=== PATIENT | female | born 1930 | race Caucasian/White ===

== ENCOUNTER 2016-09-27 10:37 | Emergency (ER) | payer MEDICARE ==
[2016-09-27 12:21] VITALS: BP 151/67
--- NOTE | 2016-09-27 12:27 | UC ---
Dizzy HPI HPI Summary: 86 yo female slept in later than normal this AM. In fact her friend woke her up about 8:30 AM She felt as though her body was pounding like it would explode This last about an hour and she felt weak and dizzy NO CP/SOB has occipital MCKEON (mild) and mild neck pain that is a chronic complaint - History Of Current Complaint Chief Complaint: UCGeneralIllness Stated Complaint: DIZZINESS Time Seen by Provider: 09/27/16 11:37 Hx Obtained From: Patient Onset/Duration: Sudden Onset Timing: Minutes Severity Initially: Moderate Severity Currently: None Pain Intensity: 2 - joint pain Pain Scale Used: 0-10 Numeric Character: Lightheaded, Weak, Dizzy Aggravating Factor(s): Nothing Alleviating Factor(s): Nothing Associated Signs And Symptoms: Negative: Nausea, Vomiting, Diaphoresis, Tinnitus , Chest Pain, SOB, Palpitations, Unsteady Gait, Visual Changes, Decreased Oral Intake, Change In Medication, Change In Diet, OTC Medications - Allergies/Home Medications Allergies/Adverse Reactions: Allergies Allergy/AdvReac Type Severity Reaction Status Date / Time No Known Allergies Allergy Verified 09/27/16 11:50 Home Medications: Home Medications Dipyridamole/Aspirin 25/200* [Aggrenox 25/200*] 1 cap.er PO BID 09/27/16 [ History Confirmed 09/27/16] Folic Acid TAB* [Folvite TAB*] 2 tab PO DAILY 09/27/16 [History Confirmed ] Methotrexate TAB* 10 tab PO Q7D 09/27/16 [History Confirmed 09/27/16] Omeprazole CAP* [Prilosec CAP* 20 MG] 20 mg PO BID 09/27/16 [History Confirmed 09/27/16] PMH/Surg Hx/FS Hx/Imm Hx Previously Healthy: No - RA Cardiovascular History Of: Reports: Cardiac Disorders - heart valve replacement , CAD, CABG, Hypertension - not on meds - Surgical History Surgical History: Yes Surgery Procedure, Year, and Place: heart valve replacement, CABG @ [facility] - Family History Known Family History: Positive: Other - no FHx of RA - Social History Alcohol Use: None Substance Use Type: None Smoking Status (MU): Never Smoked Tobacco Review of Systems Constitutional: Fatigue Skin: Negative Eyes: Negative ENT: Negative Respiratory: Negative Cardiovascular: Negative Gastrointestinal: Negative Genitourinary: Negative Motor: Negative Neurovascular: Negative Musculoskeletal: Arthralgia Neurological: Negative Psychological: Negative All Other Systems Reviewed And Are Negative: Yes Physical Exam Triage Information Reviewed: Yes Appearance: Well-Appearing, No Pain Distress, Well-Nourished Vital Signs: Initial Vital Signs Temp 97.5 F 09/27/16 10:42 Pulse 99 09/27/16 10:42 Resp 14 09/27/16 10:42 BP 90/76 09/27/16 10:42 Pulse Ox 100 09/27/16 10:42 Vital Signs Reviewed: Yes Eyes: Positive: Conjunctiva Clear ENT: Positive: Hearing grossly normal. Negative: Nasal congestion, Nasal drainage, Tonsillar exudate, Trismus Neck: Positive: Supple, Nontender, No Lymphadenopathy Respiratory: Positive: Lungs clear, Normal breath sounds, No respiratory distress, No accessory muscle use Cardiovascular Exam: Normal Cardiovascular: Positive: RRR, No Murmur. Negative: Tachycardia, Bradycardia Abdomen Description: Positive: Nontender, No Organomegaly, Soft Bowel Sounds: Positive: Present Musculoskeletal: Positive: Other: - stigmta of RA Neurological: Positive: Alert Psychological Exam: Normal Skin Exam: Normal Diagnostics - EKG Cardiac Rate: NL Cardiac Rhythm: Sinus: Normal Ectopy: None ST Segment: Non-Specific Dizzy Course/Dx - Differential Dx/Diagnosis Provider Diagnoses: dizziness (non specific). ?UTI Discharge - Discharge Plan Condition: Stable Disposition: HOME Prescriptions: Cephalexin CAP* [Keflex CAP*] 500 mg PO BID #14 cap Patient Education Materials: Urinary Tract Infection in Women (ED), Dizziness ( ED) Referrals: Crescencio Stevenson MD [Primary Care Provider] - 4 Days (if not better) Additional Instructions: blood work is pending we will start antibiotics in case you have a UTI recheck for new or worsening symptoms
[2016-09-27 20:53] LABS: Hematocrit 34 % (35-47); Hemoglobin 10.8 g/dl (12.0-16.0); Mean Corpuscular HGB Conc 32 g/dl (31-36); Mean Corpuscular Hemoglobin 30 pg (27-31); Mean Corpuscular Volume 94 fL (80-97); Mean Platelet Volume 10 um3 (7.4-10.4); Red Blood Count 3.64 10^6/ul (4.0-5.4); Red Cell Distribution Width 18 % (10.5-15); White Blood Count 4.6 10^3/ul (3.5-10.8)
[2016-09-27 21:02] LABS: BUN/Creatinine Ratio 15.9 (8-20); Calcium 9.5 mg/dL (8.6-10.3); EGFR African American 62.5 (>60); EGFR Non-African American 48.6 (>60); Potassium 4.2 mmol/L (3.5-5.0)
== END 2016-09-27 12:38 | disposition home or self-care (01) ==
LOC: UCCORT 10:37
DX: R42 Dizziness and giddiness (principal); R51 Headache; M54.2 Cervicalgia; R53.1 Weakness; Z95.2 Presence of prosthetic heart valve; Z79.01 Long term (current) use of anticoagulants; Z79.82 Long term (current) use of aspirin; Z95.1 Presence of aortocoronary bypass graft; I25.10 Atherosclerotic heart disease of native coronary artery without angina pectoris
CPT/HCPCS: 36415; 80048; 81002; 85025; 87086; 93005; 99212; G0463